=== PATIENT | male | born 1985 | race Caucasian/White ===

== ENCOUNTER 2024-07-24 09:15 | Inpatient (IN) ==
--- NOTE | 2024-07-24 09:29 | Emergency Department Note ---
Impression & Plan Hydronephrosis with obstructing calculus, Bilateral ureteral obstruction ED Provider Note Name: RASHAAD LOCKETT Age: 39 Sex: Male Arrives Via: Walk-In Informant: Patient ED Provider: Sunday Carmona MD Chief Complaint: Flank pain Impression: As per impressions above Medical Decision Making: Pleasant 39-year-old gentleman without significant past medical history who is on Ozempic arrives for evaluation of bilateral flank pain primarily on the right side today. Quite uncomfortable though initially tried Toradol with only minimal improvement. Eventually requiring multiple rounds of IV narcotics for intractable pain. CT imaging of the abdomen pelvis without contrast does reveal obstructing bilateral UVJ stones. Urinalysis is not consistent with infection and laboratory testing is reassuring. I did review this with urology and they will plan to take him for stenting given the bilateral obstructing nature and the intractable pain. Triage/Nursing Notes reviewed by Me Differential:Renal colic, UTI, appendicitis, diverticulitis, mesenteric ischemia, aortic pathology, infections, inflammatory bowel disease, PUD, biliary pathology, as well as other pathologies. Vital Signs: reviewed and remarkable for mild bradycardia on arrival Interventions: Toradol IV, Decadron IV, fentanyl IV, Zofran IV, normal saline bolus Labs:ED labs Reviewed by me and remarkable for no significant abnormalities Imaging:CT imaging and pelvis without contrast reveals bilateral ureteral stones moderate hydro bilaterally no evidence significant free fluid, free air or obstruction of bowel. Confirmed by radiologist. Consults: Discussed withLeann Silva of urology working with Dr. Manning and plan will be to bring him to the OR with hospitalist admission. Discussed with Dr. Mejia of [facility] service who will bring in for further management while pending surgical intervention Plan: Disposition:Hospitalization. Condition: Good History of Present Illness: 39-year-old gentleman arrives for evaluation of right flank pain. Patient notes he was at work around 815 when he had sudden onset severe right-sided flank pain. Radiated in the right lower quadrant. Associated with urinary burning and frequency. Pain lasted about an hour before resolving. Was associated with nausea at the time but no vomiting. Has not had any fevers, chills, other back pain, diarrhea, leg swelling, other concerning signs or symptoms. No medications prior to arrival. Patient does note that about a month ago he had a similar episode that lasted for about a day that was in his left side but not quite as severe. Patient has no history of renal colic or kidney stones that have been diagnosed. He has been on Ozempic for about a year. He also takes some supplements but denies any creatine use. Denies any drug or alcohol use either. No falls, trauma, injuries. Does note that he is bad and keeping well-hydrated though cannot recall any specific significant dehydration events recently. Works in [employer] denies any injury or clear cause during that either. Past Medical History: Prediabetic Home Medications: Ozempic, vitamin C, OTC vitamins Allergies: No known drug allergies Vitals:Blood Pressure: 132/89, Pulse 56, RR 18, T 36.5C, O2 98% on RA Physical Exam: GENERAL: Patient is mildly anxious/uncomfortable appearing and in minimal distress. RESPIRATORY: No dyspnea. Clear to auscultation and equal bilaterally. CARDIOVASCULAR: Regular rate and rhythm.No murmur appreciated. GASTROINTESTINAL: Abdomen soft, non-tender, no peritonitis. BACK: No midline tenderness, no CVA tenderness EXTREMITIES: Normal motion all extremities, no cyanosis, no edema. NEUROLOGIC: Alert and oriented. No focal neurologic deficits appreciated SKIN: No rash, no jaundice, no diaphoresis. PSYCH: Appropriate GCS: 15 ED Course: Times/Reassessments: Waxing and waning pain initially uncomfortable but then severely uncomfortable requiring multiple rounds of IV narcotics Sunday Carmona MD Past Med/Surg History Problem List (Updated 07/25/24 @ 11:43 by Sunday Carmona MD) Bilateral ureteral obstruction (Acute) Flank pain Hydronephrosis with obstructing calculus (Acute) Medical History Morbid obesity Pre-diabetes Surgical History History of dental surgery Family History Mother Diabetes Hypertension Kidney stone Sister Hypertension Kidney stone Brother Mast cell disorder Social History (Updated 07/24/24 @ 13:06 by Meri Sandoval PA-C) Smoking Status: Never smoker Tobacco Type: Smokeless Tobacco (Dip or Chew) Second Hand Exposure: No; Do You Dip or Chew Tobacco: Yes (every day); Hx Alcohol Use: Yes Alcohol type: beer Hx Substance Use: No Preferred Language: Luxembourgish Communication Ability: Effective Quality Rn Required: No Beliefs That Will Affect Care: None Current Living Situation: Spouse and Family Feels Safe at Home: Yes Assistive Devices: None Allergies Allergies Allergy/AdvReac Type Severity Reaction Status Date / Time No Known Allergies Allergy Mild Unverified 07/24/24 11:59 Home Meds Home Medications Medication Instructions Recorded Confirmed ascorbic acid (vitamin C) 500 mg 500 mg PO DAILY 07/24/24 07/24/24 tablet (Vitamin C) inulin-sorbitol 2 gram chewable 1 tab PO DAILY 07/24/24 07/24/24 tablet phentermine 37.5 mg tablet 37.5 mg PO QAM 07/24/24 07/24/24 semaglutide (weight loss) 2.4 2.4 mg subcut WK 07/24/24 07/24/24 mg/0.75 mL subcutaneous pen injector (Wegovy) Results & Data (ED) Vital Signs Vital Signs - 24 hr 07/24/24 09:18 Temperature 36.5 C Temperature Source Temporal Artery Scan Pulse Rate 56 L Respiratory Rate 18 Respiratory Effort / Characteristics Non-Labored Respiratory Depth Normal Respiratory Pattern Regular Blood Pressure 132/89 Blood Pressure Mean 103 Pulse Oximetry 98 Oxygen Delivery Method Room Air Sepsis Recent Fever Within 48 Hours No Sepsis New/Unexplained Change in Mental Status N/A Sepsis Action Taken by Nursing No Action Required Laboratory Data 07/25/24 05:35 07/25/24 05:35 Lab Results 07/24/24 07/24/24 Range/Units 09:32 11:23 WBC 4.59 L (4.8-10.8) K/ul RBC 5.36 (4.70-6.10) M/uL Hgb 15.9 (14.0-18.0) g/dl Hct 46.6 (42.0-52.0) % MCV 86.9 (80.0-100.0) fL MCH 29.7 (25.0-34.0) pg MCHC 34.1 (32.0-36.0) g/dL RDW Std Deviation 39.5 (36.4-46.3) fL RDW Coeff of Brenda 12.5 (11.5-14.5) % Plt Count 177 (130-400) K/uL MPV 10.3 (9.4-12.4) fL Immature Gran % (Auto) 0.0 % Neut % (Auto) 68.8 % Lymph % (Auto) 21.8 % [place] % (Auto) 8.1 % Eos % (Auto) 1.1 % Baso % (Auto) 0.2 % Neut # (Auto) 3.16 (1.40-6.50) K/uL Lymph # (Auto) 1.00 L (1.20-3.40) K/uL [place] # (Auto) 0.37 (0.11-0.59) K/uL Eos # (Auto) 0.05 (0.00-0.50) K/uL Baso # (Auto) 0.01 (0.00-0.20) K/uL Immature Gran # (Auto) 0.00 L (0.01-0.20) K/uL Sodium 140 (136-145) mmol/L Potassium 4.1 (3.5-5.1) mmol/L Chloride 106 (98-107) mmol/L Carbon Dioxide 28 (21-32) mmol/L Anion Gap 6 (3-11) BUN 14 (6-23) mg/dl Creatinine 1.00 (0.6-1.4) mg/dl Est Cr Clr Drug Dosing 132.3 ml/min Est GFR ( Amer) 109.4 ml/min Est GFR (Non-Af Amer) 94.4 ml/min BUN/Creatinine Ratio 14.0 (10-20) Glucose 113 H (70-99(Fasting)) mg/dl Calcium 9.2 (8.6-10.3) mg/dl Total Bilirubin 0.7 (0.2-1.0) mg/dl Direct Bilirubin 0.2 (0-0.2) mg/dl AST 21 (13-39) U/L ALT 23 (7-52) U/L Alkaline Phosphatase 56 (34-104) U/L Total Protein 7.9 (6.0-8.3) gm/dl Albumin 4.7 (3.4-5.0) gm/dl Lipase 79 (11-82) U/L Urine Color Yellow Urine Appearance Clear (Clear) Urine pH 5.0 (4.5-7.5) Ur Specific Anderson 1.022 (1.000-1.030) Urine Protein Trace H (Negative) Urine Glucose (UA) Negative (Negative) Urine Ketones Trace H (Negative) Urine Blood 3+ H (Negative) Urine Nitrite Negative (Negative) Urine Bilirubin Negative (Negative) Urine Urobilinogen Negative (Negative) Ur Leukocyte Esterase Trace H (Negative) Urine WBC (Auto) 6-10 H (0-5) /hpf Urine RBC (Auto) >20 H (0-2) /hpf U Hyaline Cast (Auto) 0-2 (0-2) /lpf U Epithel Cells (Auto) 0-2 (0-2) /hpf Urine Bacteria (Auto) None Seen (None Seen) Administered Medications Acetaminophen (Acetaminophen 325 Mg Tab) 650 mg PO Q4H PRN PRN Reason: pain/fever Stop: 08/23/24 18:57 Last Admin: 07/24/24 20:00 Dose: 650 mg Documented By: ABBI Lactated Ringer's (Lr) 1,000 mls @ 125 mls/hr IV .Q8H ROXY Stop: 08/23/24 12:44 Last Admin: 07/25/24 11:08 Dose: 125 mls/hr Documented By: Infusion: 07/25/24 11:07 Dose: Infused Documented By: Admin: 07/25/24 03:01 Dose: 125 mls/hr Documented By: Infusion: 07/25/24 03:01 Dose: Infused Documented By: Admin: 07/24/24 20:01 Dose: 125 mls/hr Documented By: Infusion: 07/24/24 20:01 Dose: Infused Documented By: Admin: 07/24/24 12:58 Dose: 125 mls/hr Documented By: JOAQUIN Ceftriaxone Sodium (Rocephin) 2,000 mg in 50 mls @ 100 mls/hr IV Q24H ROXY Stop: 08/03/24 13:29 Last Infusion: 07/24/24 13:47 Dose: Infused Documented By: Admin: 07/24/24 13:13 Dose: 100 mls/hr Documented By: JOAQUIN Tamsulosin HCl (Tamsulosin Hcl 0.4 Mg Cap) 0.4 mg PO QAM ROXY Stop: 08/23/24 19:14 Last Admin: 07/25/24 08:48 Dose: 0.4 mg Documented By: Admin: 07/24/24 19:48 Dose: 0.4 mg Documented By: CRH Discontinued Medications Diatrizoate Meglumine (Diatrizoate Meglumine 30% 100ml Vial) 35 ml INSTIL ONCE ONE Stop: 07/24/24 17:50 Last Admin: 07/24/24 17:30 Dose: 35 ml Documented By: [id number] Fentanyl Citrate (Fentanyl Citrate Pf 100 Mcg/2 Ml Vial) 100 mcg IV NOW STA Stop: 07/24/24 12:16 Last Admin: 07/24/24 12:24 Dose: 100 mcg Documented By: MONICA Hydromorphone HCl (Hydromorphone Inj 1 Mg/Ml Syringe) 1 mg IV NOW STA Stop: 07/24/24 11:51 Last Admin: 07/24/24 12:07 Dose: 1 mg Documented By: MONICA Sodium Chloride (Nss) 1,000 mls @ 999 mls/hr IV .Q1H1M ONE Stop: 07/24/24 10:26 Last Infusion: 07/24/24 10:55 Dose: Infused Documented By: Admin: 07/24/24 09:45 Dose: 999 mls/hr Documented By: GUI Sodium Chloride (Nss) 1,000 mls @ 999 mls/hr IV .Q1H1M ONE Stop: 07/24/24 11:51 Last Infusion: 07/24/24 12:24 Dose: Infused Documented By: Admin: 07/24/24 10:55 Dose: 999 mls/hr Documented By: JOAQUIN Ketorolac Tromethamine (Ketorolac 30 Mg/Ml Vial) 30 mg IV NOW STA Stop: 07/24/24 09:40 Last Admin: 07/24/24 09:44 Dose: 30 mg Documented By: GUI Ondansetron HCl (Ondansetron Inj 2 Mg/Ml 2 Ml Vial) 4 mg IV NOW STA Stop: 07/24/24 09:40 Last Admin: 07/24/24 09:44 Dose: 4 mg Documented By: GUI Discharge Plan Visit Data Chief Complaint: Kidney Stone ED Provider: Sunday Carmona Discharge Problem: Hydronephrosis with obstructing calculus, Bilateral ureteral obstruction Patient Disposition: Admitted As Inpatient Discharge Instructions Interventions: ED Discharge Assessment Last Done: 07/24/24 14:47
[2024-07-24] MEDS: ONDANSETRON INJ 2 MG/ML 2 ML VIAL IV STA (09:44)
[2024-07-24] MEDS: KETOROLAC 30 MG/ML VIAL IV STA (09:44)
[2024-07-24] MEDS: SODIUM CHLORIDE 0.9% 1,000 ML IV ONE ×2 (09:45→10:55)
[2024-07-24 10:01] LABS: Basophils # (auto) 0.01 K/uL (0.00-0.20); Basophils % (auto) 0.2 %; Eosinophils # (auto) 0.05 K/uL (0.00-0.50); Eosinophils % (auto) 1.1 %; Hematocrit (blood only) 46.6 % (42.0-52.0); Hemoglobin 15.9 g/dl (14.0-18.0); Lymphocytes % (auto) 21.8 %; Mean Corpuscular Hemoglobin 29.7 pg (25.0-34.0); Mean Corpuscular Hgb Conc 34.1 g/dL (32.0-36.0); Mean Corpuscular Volume 86.9 fL (80.0-100.0); Mean Platelet Volume 10.3 fL (9.4-12.4); Monocytes # (auto) 0.37 K/uL (0.11-0.59); Monocytes % (auto) 8.1 %; Neutrophils # (auto) 3.16 K/uL (1.40-6.50); Neutrophils % (auto) 68.8 %; Platelet Count 177 K/uL (130-400); RDW Coefficient of Variation 12.5 % (11.5-14.5); RDW Standard Deviation 39.5 fL (36.4-46.3); Red Blood Count 5.36 M/uL (4.70-6.10); White Blood Count 4.59 K/ul (4.8-10.8)
--- NOTE | 2024-07-24 10:03 | CT Scan Report ---
CT abd pelvis wo con CLINICAL HISTORY: right flank pain TECHNIQUE: Helical axial images of the abdomen and pelvis were obtained. Automated dose lowering tech niques and/or adjustment according to patient size were utilized for this exam. This exam was perfor med without intravenous contrast. CT DOSE: 1605.89 mGy.cm COMPARISON: None available at the time of this dictation. FINDINGS: Lower chest: No acute abnormality. Liver: Unremarkable. No focal lesions are seen. Gallbladder and biliary tree: No calcified gallstones. Normal caliber wall. No intra- or extrahepatic biliary ductal dilation. Pancreas: Unremarkable, no focal lesions. Spleen: Splenule is incidentally noted. Adrenals: Unremarkable. Kidneys and ureters: There is a 6 mm stone in the left UVJ with associated hydroureter and hydronephr osis. There is also a right UVJ stone measuring 3 mm with associated hydroureter. Nonobstructive ston es are seen bilaterally as well. An exophytic left renal cyst measures 12 mm. Bladder: There is a 6 mm stone in the left UVJ with associated hydroureter and hydronephrosis. An exo phytic left renal cyst measures 12 mm. Reproductive organs: Unremarkable. Bowel: The appendix is normal. Lymph nodes Retroperitoneal: Unremarkable. Pelvic: Unremarkable. Mesenteric: Unremarkable. Peritoneum: Normal. Vessels: Unremarkable. Abdominal wall: Unremarkable. Bones: Degenerative changes in the visualized spine. IMPRESSION: Bilateral hydroureteronephrosis is seen with obstructive stones in the UVJ measuring 6 mm on the left and 3 mm on the right. Additional findings as above. ACT 112: Negative or not required by law. Electronically signed by: Sridhar Flores M.D. 07/24/2024 10:01 AM
[2024-07-24 10:19] LABS: Albumin Level 4.7 gm/dl (3.4-5.0); Bilirubin Direct 0.2 mg/dl (0-0.2); Bilirubin,Total 0.7 mg/dl (0.2-1.0); Calcium 9.2 mg/dl (8.6-10.3); Potassium 4.1 mmol/L (3.5-5.1)
[2024-07-24 10:25] LABS: Creatinine Clr Calc Pharmacy 132.3 ml/min; Est GFR (African American) 109.4 ml/min; Est GFR (Non-African American) 94.4 ml/min; Total Protein 7.9 gm/dl (6.0-8.3)
--- OUTSIDE RECORDS SUMMARY | 2024-07-24 11:14 | External Medical Summary | Summary of Care ---
Author Name Unknown Organization [facility] Address [address] [place] [address] Phone [phone] Care Team Providers Care Water Registrar Name Role Phone Chilo Monique MD Primary Care Provider [phone] Encounter Details Date Type Department Care Team (Late st Contact Info) Description 05/05/2024 Orders Only Outcomes Research Department [address], [place] [id number] Esperanza Porter CHRA [facility] Research Other*[id number] Allergies No known active allergiesdocumented as of this encounter (statuses as of 05/05/2024) Medications Medication Sig Dispensed Refills Start Date End Date Status Wegovy 1.7 MG/0.75ML Subcutaneous Solution Auto-injector Inject 1.7 mg under the skin once a week. 10/10/2023 Active documented as of this encounter (statuses as of 05/05/2024) Active Problems Problem Noted Date Diagnosed Date Severe obesity (BMI 35.0-39.9) with comorbidity 01/19/2024 BMI 40.0-44.9, adult 09/22/2022 COVID-19 virus infection 09/22/2022 Prediabetes 07/03/2021 Sleep disorder 06/09/2021 Acute right ankle pain 11/01/2017 Anal fissure 12/12/2002 documented as of this encounter (statuses as of 05/05/2024) Immunizations Name Administration Dates Next Due Seasonal Influenza, PF, 6 M & above, IM , (FluLaval or Fluzone) 10/23/2023,08/02/2022 Seasonal Influenza, Quadrivalent, No Preserve, I M 07/20/2021 TDAP (age 10 and older)(Boostrix) 03/13/2022 documented as of this encounter Social History Tobacco Use Types Packs/Day Years Used Date Smoking Tobacco: Never Smokeless Tobacco: Current Chew Comments:began at age 20, 1 can per 3 days Alcohol Use Standard Drinks/Week Comments Yes 4 (1 standard drink = 0.6 oz pur e alcohol) once a year AUDIT-C Answer Date Recorded Q1: How often do you have a drink containing alc ohol? Monthly or less 06/09/2021 Q2: How many drinks containi ng alcohol do you have on a typical day when you are drinking? 3 or 4 06/09/2021 Q3: How often do you have si x or more drinks on one occasion? Less than monthly 06/09/2021 PHQ-2 Answer Date Recorded PHQ Adult Total Score 0 09/22/2022 Hunger Vital Sign Answer Date Recorded Within the past 12 months, y ou worried that your food would run out before you got the money to buy more. Never true 03/14/20 23 Within the past 12 months, t he food you bought just didn't last and you didn't have money to get more. Never true 03/14/2023 Sex and Gender Information Value Date Recorded Sex Assigned at Male 03/14/2023 10:37 AM EDT Gender Identity Male 03/14/2023 10:37 AM EDT Sexual Orientation Straight 03/14/2023 10 :37 AM EDT Job Start Date Occupation Industry Not on file Not on file Not on file documented as of this encounter Plan of Treatment Upcoming Encounters Date Type Department Care Team (Late st Contact Info) Description 10/24/2024 2:40 PM EST Office Visit [facility] [address] [facility] [place] [address] Chilo Monique MD [address] [facility] [place] [id number] Scheduled Orders Name Type Priority Associated Diagnoses Orde r Schedule MYCODE INITIAL ADULT Lab Routine My[facility] Research Other*[id number] Expected: 05/05/2024 (Approximate), Expires: 05/25/2025 Health Maintenance Due Date Last Done Comments HIV Screening 2000 Hepatitis C Screening 2003 Hepatitis B (1 of 3 - 19+ 3-dose series) 2004 COVID-19 Vaccine (1 - 2022-24 season) 2023 Depression Screening 09/22/2023 09/22/2022, 08/28/20 18 HbA1c 05/03/2024 05/03/2023, 11/0 02/2022, 03/06/2022, Additional history exists DTaP,Tdap,and Td Vaccines (3 - Td or Tdap) 03/13/2032 03/13/2022, 08/28/2018 (Done elsewhere) Influenza Vaccine (FLU shot) Completed 03/2023, 08/02/2022, 07/20/2021, Additional history exists GARDASIL-HPV IMMUNIZATION SERIES Aged Out No longer eligible based on patient's age to complete this topic MENINGOCOCCAL (MENACTRA/MENVEO) Aged Out No longer eligible based on patient's age to complete this topic Pneumococcal Vaccine: Pediatrics (0 to 5 Years) and At-Risk Patients (6 to 64 Years) Aged Out No longer eligible based on patient's age to complete this topic documented as of this encounter Medical Devices Not on filedocumented as of this encounter Visit Diagnoses Diagnosis [facility] Other*[id number] documented in this encounter Care Teams Water Registrar Relationship Specialty Start Date End Date March, Chilo Bess MD [address] [place] [id number] PCP - General Family Medicine 10/23/23 documented as of this encounter
[2024-07-24 12:07] LABS: Appearance Urine Clear (Clear); Bacteria Urine Automated None Seen (None Seen); Bilirubin Urine Negative (Negative); Blood Urine 3+ (Negative); Cast Urine Automated 0-2 /lpf (0-2); Color Urine Yellow; Epithelial Cell Urine Auto 0-2 /hpf (0-2); Glucose Urine UA Negative (Negative); Ketones Urine Trace (Negative); Leukocyte Esterase Urine Trace (Negative); Nitrite Urine Negative (Negative); Protein Urine Trace (Negative); RBC Urine Automated >20 /hpf (0-2); Specific Gravity Urine 1.022 (1.000-1.030); Urobilinogen Urine Negative (Negative)
[2024-07-24] MEDS: HYDROmorphone INJ 1 MG/ML SYRINGE IV STA (12:07)
[2024-07-24] MEDS: fentaNYL citrate PF 100 MCG/2 ML VIAL IV STA (12:24)
--- NOTE | 2024-07-24 12:46 | History & Physical Report ---
Date of Service July 24, 2024 Assessment & Plan (1) Hydronephrosis with obstructing calculus: Plan Bilateral hydroureteronephrosis with obstructive stone in the UVJ, 6mm on L and 3mm on right admit to med/surg --CT a/p: Bilateral hydroureteronephrosis is seen with obstructive stones in the UVJ measuring 6 mm on the left and 3 mm on the right. Additional findings as above. LR @ 125cc/hr Flomax daily NPO for procedure, will give diet post operatively Pain control with IV toradol for moderate pain, IV dilaudid for severe pain and oral OXY IR for mild-moderate pain Empiric IV Rocephin for now, await urine culture Urology to take to OR later today Pre diabetes Morbid Obesity pt is on wegovy last a1c 5. 25 April 2023, will obtain a1c in a.m. DVT ppx: Encourage ambulation post op, chemical prophylaxis not indicated FULL CODE PCP: Dr. Chilo Monique Dispo: admit for urologic procedure later today, suspect he will be able to be discharged in 1-2 days Pt was seen and examined in collaboration with Dr. Mejia, please see addendum A total of 50 was spent coordinating, documenting, and providing care for this patient excluding time spent in the performance of separately billed services. This included personally viewing all current laboratories and imaging studies, medication reconciliation, outpatient chart review, and discussion with specialists. History of Present Illness Chief Complaint: R flank pain x 1 day. Primary Care Provider: Chilo Monique MD This is a 39 year old M who has a significant PMH of pre diabetes and obesity who presents to ED 2/2 R sided flank/low back pain. The pain came on abruptly this morning. It was associated with nausea, sweating but no vomiting. He states he had a kidney stone May 29 as well, but previously has never had stones. He denies f/c/s, chest pain, sob, abd pain or hematuria. He does have some dysuria. He does not take any regular medications except injectable Wegovy. In ED he remained hemodynamically stable. His CBC, CMP was generally unremarkable. He underwent CT a/p and was found to have obstructive stones in the UVJ measuring 6mm on L and 3mm on right with associated bilateral hydroureteronephrosis. He was seen and evaluated by urology who is going to take him to the OR later today. Allergies Allergy/AdvReac Type Severity Reaction Status Date / Time No Known Allergies Allergy Mild Unverified 07/24/24 11:59 Home Medications Medication Instructions Recorded Confirmed Type ascorbic acid (vitamin C) 500 mg 500 mg PO DAILY 07/24/24 07/24/24 History tablet (Vitamin C) inulin-sorbitol 2 gram chewable 1 tab PO DAILY 07/24/24 07/24/24 History tablet phentermine 37.5 mg tablet 37.5 mg PO QAM 07/24/24 07/24/24 History semaglutide (weight loss) 2.4 2.4 mg subcut WK 07/24/24 07/24/24 History mg/0.75 mL subcutaneous pen injector (Wegovy) Past Med/Surg History Problem List (Updated 07/24/24 @ 13:08 by Meri Sandoval PA-C) Hydronephrosis with obstructing calculus Medical History Morbid obesity Pre-diabetes Surgical History History of dental surgery Family History Mother Diabetes Hypertension Kidney stone Sister Hypertension Kidney stone Brother Mast cell disorder Social History (Updated 07/24/24 @ 13:06 by Meri Sandoval PA-C) Smoking Status: Never smoker Hx Alcohol Use: No Hx Substance Use: No Preferred Language: Zimbabwean Feels Safe at Home: Yes Review of Systems Review of Systems: All systems reviewed & are unremarkable except as noted in HPI & below Physical Exam Physical Exam: please refer to Dr. Mejia addendum for physical exam findings Results & Data Results & Data Vital Signs (Past 12 Hours) Vital Signs Temp Pulse Pulse Resp BP BP Pulse Ox 07/24/24 11:15 60 18 128/84 98 07/24/24 09:18 36.5 C 56 L 18 132/89 98 O2 Del Method 07/24/24 11:15 Room Air 07/24/24 09:18 Room Air Laboratory Results I have independently reviewed and interpreted patient's admitting labs including CBC, CMP, lipase Diagnostic Findings Abdomen/Pelvis CT 07/24/24 09:26 CT abd pelvis wo con CLINICAL HISTORY: right flank pain TECHNIQUE: Helical axial images of the abdomen and pelvis were obtained. Automated dose lowering techniques and/or adjustment according to patient size were utilized for this exam. This exam was performed without intravenous contrast. CT DOSE: 1605.89 mGy.cm COMPARISON: None available at the time of this dictation. FINDINGS: Lower chest: No acute abnormality. Liver: Unremarkable. No focal lesions are seen. Gallbladder and biliary tree: No calcified gallstones. Normal caliber wall. No intra- or extrahepatic biliary ductal dilation. Pancreas: Unremarkable, no focal lesions. Spleen: Splenule is incidentally noted. Adrenals: Unremarkable. Kidneys and ureters: There is a 6 mm stone in the left UVJ with associated hydroureter and hydronephrosis. There is also a right UVJ stone measuring 3 mm with associated hydroureter. Nonobstructive stones are seen bilaterally as well. An exophytic left renal cyst measures 12 mm. Bladder: There is a 6 mm stone in the left UVJ with associated hydroureter and hydronephrosis. An exophytic left renal cyst measures 12 mm. Reproductive organs: Unremarkable. Bowel: The appendix is normal. Lymph nodes Retroperitoneal: Unremarkable. Pelvic: Unremarkable. Mesenteric: Unremarkable. Peritoneum: Normal. Vessels: Unremarkable. Abdominal wall: Unremarkable. Bones: Degenerative changes in the visualized spine. IMPRESSION: Bilateral hydroureteronephrosis is seen with obstructive stones in the UVJ measuring 6 mm on the left and 3 mm on the right. Additional findings as above. ACT 112: Negative or not required by law. Electronically signed by: Sridhar Flores M.D. 07/24/2024 10:01 AM Medications Administered Medication List Discontinued Medications Fentanyl Citrate (Fentanyl Citrate Pf 100 Mcg/2 Ml Vial) 100 mcg IV NOW STA Stop: 07/24/24 12:16 Last Admin: 07/24/24 12:24 Dose: 100 mcg Documented By: MONICA Hydromorphone HCl (Hydromorphone Inj 1 Mg/Ml Syringe) 1 mg IV NOW STA Stop: 07/24/24 11:51 Last Admin: 07/24/24 12:07 Dose: 1 mg Documented By: MONICA Sodium Chloride (Nss) 1,000 mls @ 999 mls/hr IV .Q1H1M ONE Stop: 07/24/24 10:26 Last Infusion: 07/24/24 10:55 Dose: Infused Documented By: Admin: 07/24/24 09:45 Dose: 999 mls/hr Documented By: GUI Sodium Chloride (Nss) 1,000 mls @ 999 mls/hr IV .Q1H1M ONE Stop: 07/24/24 11:51 Last Infusion: 07/24/24 12:24 Dose: Infused Documented By: Admin: 07/24/24 10:55 Dose: 999 mls/hr Documented By: JOAQUIN Ketorolac Tromethamine (Ketorolac 30 Mg/Ml Vial) 30 mg IV NOW STA Stop: 07/24/24 09:40 Last Admin: 07/24/24 09:44 Dose: 30 mg Documented By: GUI Ondansetron HCl (Ondansetron Inj 2 Mg/Ml 2 Ml Vial) 4 mg IV NOW STA Stop: 07/24/24 09:40 Last Admin: 07/24/24 09:44 Dose: 4 mg Documented By: GUI Code Status & VTE Plan Code Status FULL CODE VTE Prophylaxis Plan VTE Prophylaxis will be ordered: No Reason for no VTE drug order: Treatment not indicated Supervising Physician Co-Signing Physician Notes Patient is a 39-year-old male with history of obesity, prediabetes, nephrolithiasis and no other significant past medical history presents with right flank pain associated with nausea, dysuria since this morning. Patient reports that he was known to have kidney stones since May 2024. Please review HPI for complete details of presentation. I personally reviewed blood work and imaging studies. CT abdomen suggestive of bilateral hydroureteronephrosis with obstructive stones in the UV junction measuring 6 mm on the left and 3 mm on the right. Physical Exam: Vitals signs as noted above General Appearance: Obese, no apparent distress Head: normocephalic, Atraumatic Eyes: normal inspection, EOMI Neck: supple, Trachea midline Respiratory/Chest: Normal breath sounds, CTA, No accessory muscle use Cardiovascular: S1, S2, No murmur Abdomen/GI:Soft, right flank tender, Bowel sounds present Extremities/Musculoskeletal:normal inspection, no edema Neurologic/Psych:AAOX3, grossly no focal neurological deficits Skin: normal color, warm Obstructive uropathy Ureteral stone Nephrolithiasis Possible UTI Obesity Prediabetes Agree with IV fluids, pain control, drain urine, Flomax, empirically started on Rocephin, Pyridium as needed Urology on board Obtain urine culture Update HbA1c I personally interviewed and examined at bedside. Patient's care is coordinated with Meri Sandoval PA-C. I have reviewed the advanced practitioner's documentation, and I agree with plan of care. Please refer to the documentation above for details of patient's presentation and for discussion of other issues. I spent a total [id number] coordinating, documenting, and providing care for this patient excluding time spent in the performance of separately billed services.
[2024-07-24] MEDS: LACTATED RINGER'S 1,000 ML IV SCH (12:58)
--- NOTE | 2024-07-24 13:09 | Anesthesiology Consultation ---
Date of Service July 24, 2024 Assessment & Plan Chart Review Chart Review: Acceptable Risk for Surgery and Patient NOT seen in Pre Admission Testing Consults Requested none Additional Notes last ozempic dose 07/19/24 History Surgery Operation Date: 07/24/24 09:20 Proposed Procedures p Cystoscopy, Bilateral Retrograde Pyelogram, Bilateral Stent Placement - Jagdeep Manning DO Height/Weight Height: 6 ft Weight: 119.4 kg Allergies Allergy/AdvReac Type Severity Reaction Status Date / Time No Known Allergies Allergy Mild Unverified 07/24/24 11:59 Medications Home Medications Medication Instructions Recorded Confirmed Last Taken ascorbic acid (vitamin C) 500 mg 500 mg PO DAILY 07/24/24 07/24/24 Unknown tablet (Vitamin C) inulin-sorbitol 2 gram chewable 1 tab PO DAILY 07/24/24 07/24/24 Unknown tablet phentermine 37.5 mg tablet 37.5 mg PO QAM 07/24/24 07/24/24 Unknown semaglutide (weight loss) 2.4 2.4 mg subcut WK 07/24/24 07/24/24 07/19/24 mg/0.75 mL subcutaneous pen injector (Wegovy) Active Medications Generic Name Dose Route Start Last Admin Trade Name Freq PRN Reason Stop Dose Admin Lactated Ringer's 1,000 mls @ 125 mls/hr 07/24/24 12:45 07/24/24 12:58 Lr IV 08/23/24 12:44 125 mls/hr .Q8H ROXY Administration Past Medical History Medical History Morbid obesity Pre-diabetes Past Family History Family History Mother Diabetes Hypertension Kidney stone Sister Hypertension Kidney stone Brother Mast cell disorder Past Surgical History Surgical History History of dental surgery Social History Smoking Status: Never smoker Hx Alcohol Use: No Hx Substance Use: No Physical Exam Vital Signs Last Vital Signs Temp 97.7 F 07/24/24 09:18 Pulse 60 07/24/24 11:15 Resp 18 07/24/24 11:15 BP 128/84 07/24/24 11:15 Pulse Ox 98 07/24/24 11:15 O2 Del Method Room Air 07/24/24 11:15 Testing Laboratory Results 07/24/24 09:32 07/24/24 09:32 Urine Color Yellow 07/24/24 11:23 Urine Appearance Clear (Clear) 07/24/24 11:23 Urine pH 5.0 (4.5-7.5) 07/24/24 11:23 Ur Specific [place] 1.022 (1.000-1.030) 07/24/24 11:23 Urine Protein Trace (Negative) H 07/24/24 11:23 Urine Glucose (UA) Negative (Negative) 07/24/24 11:23 Urine Ketones Trace (Negative) H 07/24/24 11:23 Urine Nitrite Negative (Negative) 07/24/24 11:23 Ur Leukocyte Esterase Trace (Negative) H 07/24/24 11:23 Urine WBC (Auto) 6-10 /hpf (0-5) H 07/24/24 11:23 Urine RBC (Auto) >20 /hpf (0-2) H 07/24/24 11:23 U Hyaline Cast (Auto) 0-2 /lpf (0-2) 07/24/24 11:23 U Epithel Cells (Auto) 0-2 /hpf (0-2) 07/24/24 11:23 Urine Bacteria (Auto) None Seen (None Seen) 07/24/24 11:23
[2024-07-24] MEDS: cefTRIAXone SODIUM 2,000 MG/50 ML BAG IV SCH (13:13)
--- NOTE | 2024-07-24 13:20 | Urology Consultation ---
Date of Consultation July 24, 2024 Assessment & Plan (1) Hydronephrosis with obstructing calculus: (2) Flank pain: (3) Bilateral ureteral obstruction: Plan 39 yo/M who presented with severe right sided flank/back pain and is admitted with bilateral obstructing ureteral stones - Afebrile with stable vitals at present. - Labs reviewed - WBC 4.59, Creatinine 1.00 - He is making urine and voiding without issue. - Urine culture pending. - We reviewed his CT findings of bilateral obstructing ureteral stones. Discussed recommendation for cystoscopy and bilateral ureteral stent placement. Ureteral stents were discussed as well as postoperative issues and pain manageme nt. He is aware additional procedures will be needed for stone treatment. Risks and benefits were discussed. All questions were answered. - Given his bilateral obstructing ureteral stones, will proceed to OR today for cystoscopy, bilateral retrograde pyelogram, bilateral ureteral stent placement. - Risks and benefits to be reviewed with patient by Dr. Manning. - Keep NPO. - Continue supportive care and pain management as needed. - He is covered with scheduled IV Rocephin. - Urology to follow. Attending note: Patient independently assessed, examined, interviewed, and evaluated. Patient has bilateral obstructing stones. Was producing a small amount of urine. Major concern if patient develops significant in area with bilateral obstruction. Would be deemed a medical emergency in that situation. Patient had not eaten this morning but did have some water earlier in the day. Discussed concern about significant bilateral obstruction. Imaging was reviewed interpreted by myself. Does have bilateral obstructing stones. Agree with note as above. Patient's vitals and labs were all reviewed. Pertinent values in the HPI and plan section. White cells 4.59. Creatinine 1.00. Hemoglobin 15.9. Imaging was reviewed interpreted by myself. Imaging is showing bilateral obstructing stones. Agree with read. Vitals were reviewed. Patient having blood pressure 128/84. Pulse 60 respirations 20 temp 36.5. No episodes of fever. Oxygen saturation 97% on room air. Discussed findings extensively with patient and family. Reviewed with nurse practitioner as well as consulting physicians/team. Patient's complicated medical and surgical history was reviewed and summarized above. Patient's surgical, medical, social, and family history were all reviewed with pertinent values as above. Discussed patient's current diagnosis as well as concerns and issues. Reviewed different options moving forward. Discussed potential risks and benefits as well as possible options and concerns. Reviewed potential surgical options and interventions. Discussed potential issues and concerns related to intervention. Risk and benefits were discussed extensively with patient and any available family. Discussed potential risks related to anesthesia. Discussed risks of bleeding infection and injury. Discussed concerns related to obstructing stones. Discussed major concern for complete obstruction. Reviewed possible renal injury and considerable issues. Multiple questions were answered. Extensively reviewed options moving forward. Discussed patient's options for intervention. Discussed possible bilateral stent placement. Discussed possible diuresis after correction of obstruction. Discussed ongoing pain and discomfort. Discussed possible intervention. Discussed need for extraction or destruction of stone. Discussed options moving forward. Patient's complicated medical and surgical history is reviewed and surmise above all imaging was reviewed interpreted by myself all labs and vitals were reviewed and summarized as above. Please see HPI or plan section for full report. Patient is going to remain n.p.o. until intervention. If acutely worsens would need to be placed urgently especially if patient develops an area. Risks and benefits discussed at length for procedure. These include bleeding, infection, injury to surrounding tissues or organs, and risks associated with anesthesia. Patient states understanding and agrees to proceed. Will sign consent and schedule. Plan for cystoscopy with possible bilateral stent placement History of Present Illness History of Present Illness 39 year old male with a PMHx significant for pre diabetes and obesity who presented to the ED today due to an abrupt onset of severe right sided pain. In the ED he was afebrile and hemodynamically stable. Labs showing no leukocytosis and normal renal function. Urinalysis with 3+ blood, trace LE, 610 WBC,> 20 RBC, negative bacteria, negative nitrite. CT abdomen pelvis was obtained and notable for bilateral hydroureteronephrosis with obstructive stones in the UVJ measuring 6 mm on the left and 3 mm on the right. ED course: IV fluids, Toradol, Dilaudid, fentanyl, Zofran. He is admitted to medicine service. Patient was seen at bedside in the ED. No acute distress. Appears uncomfortable. Reports persistent right-sided pain. Denies fever or chills. Some nausea, no vomiting. Had water earlier this morning but otherwise nothing to eat or drink since last night. He is still making urine and voiding. Denies hematuria or dysuria. Patient reports he had a similar episode of pain in May that was on his left side. He denies prior known history of kidney stones. Allergies Allergy/AdvReac Type Severity Reaction Status Date / Time No Known Allergies Allergy Mild Unverified 07/24/24 11:59 Home Medications Medication Instructions Recorded Confirmed Type ascorbic acid (vitamin C) 500 mg 500 mg PO DAILY 07/24/24 07/24/24 History tablet (Vitamin C) inulin-sorbitol 2 gram chewable 1 tab PO DAILY 07/24/24 07/24/24 History tablet phentermine 37.5 mg tablet 37.5 mg PO QAM 07/24/24 07/24/24 History semaglutide (weight loss) 2.4 2.4 mg subcut WK 07/24/24 07/24/24 History mg/0.75 mL subcutaneous pen injector (Cindyvnataliya) Patient History Medical History Morbid obesity Pre-diabetes Surgical History History of dental surgery Family History Mother Diabetes Hypertension Kidney stone Sister Hypertension Kidney stone Brother Mast cell disorder Social History (Updated 07/24/24 @ 13:06 by Meri Sandoval PA-C) Smoking Status: Never smoker Hx Alcohol Use: No Hx Substance Use: No Preferred Language: Uzbek Feels Safe at Home: Yes Review of Systems 2 Review of Systems: All systems reviewed & are unremarkable except as noted in HPI & below Physical Exam Constitutional: no acute distress and + uncomfortable Respiratory: no respiratory distress and no labored breathing Musculoskeletal: Head/Neck/Chest: normocephalic Neurologic: moves all extremities and awake Psychiatric: A+Ox3, euthymic affect Results & Data Vital Signs (Past 12 Hours) Vital Signs Temp Pulse Pulse Resp BP BP Pulse Ox 07/24/24 11:15 60 18 128/84 98 07/24/24 09:18 36.5 C 56 L 18 132/89 98 O2 Del Method 07/24/24 11:15 Room Air 07/24/24 09:18 Room Air PG Care Time/CCT Total # of Minutes Spent Total Time Spent with Patient: Total time spent is greater than 50% in coordination of care (as documented) at patient's floor/unit and/or counseling patient: Coding Level of Care Code 77152 IN/OBS CONSULT LVL 4,60M Diagnoses Hydronephrosis with obstructing calculus N13.2 Flank pain R10.9 Bilateral ureteral obstruction N13.5
[2024-07-24] MEDS ORDERED: LIDOCAINE 2% 2 ML VIAL/AMP(20MG/ML) INFIL ONE (16:51)
[2024-07-24] MEDS ORDERED: PROPOFOL IV EMULSION 10 MG/ML 20 ML VIAL IV ONE (16:51)
[2024-07-24] MEDS ORDERED: ONDANSETRON INJ 2 MG/ML 2 ML VIAL ONE (16:52)
[2024-07-24] MEDS ORDERED: MIDAZOLAM HCL 1 MG/ML 2ML VIAL ONE (16:52)
[2024-07-24] MEDS ORDERED: DEXAMETHASONE SOD INJ 4 MG/ML VIAL ONE ×2 (16:52→17:29)
[2024-07-24] MEDS ORDERED: fentaNYL citrate PF 100 MCG/2 ML VIAL ONE (16:52)
[2024-07-24] MEDS ORDERED: ROCURONIUM BROMIDE 10 MG/ML 5 ML VIAL IV ONE (16:55)
[2024-07-24] MEDS ORDERED: SUCCINYLCHOLINE CHLORIDE 20 MG/ML 10 ML VIAL IV ONE (16:55)
[2024-07-24] MEDS ORDERED: ONDANSETRON INJ 2 MG/ML 2 ML VIAL IV PRN ×2 (17:02→18:58)
[2024-07-24] MEDS ORDERED: ePHEDrine sulfate 50 MG/ML AMP IV PRN (17:02)
[2024-07-24] MEDS ORDERED: fentaNYL citrate PF 100 MCG/2 ML VIAL IV PRN (17:02)
[2024-07-24] MEDS ORDERED: ATROPINE SULFATE 0.1 MG/ML 10ML SYR IV PRN (17:02)
[2024-07-24] MEDS ORDERED: GLYCOPYRROLATE 0.2 MG/ML VIAL ONE (17:29)
[2024-07-24] MEDS: DIATRIZOATE MEGLUMINE 30% 100ML VIAL INSTIL ONE (17:30)
--- NOTE | 2024-07-24 17:50 | Operative Report ---
PG Post Operative Report Pre & Post Diagnosis Operation Date: 07/24/24 09:20 Pre-Op Diagnosis: Back pain, Bilateral Obstructing Stones Post-Op Diagnosis: Same I identified the patient and participated in the time-out.: Yes Procedure Operation Date: 07/24/24 09:20 Actual Procedures Cystoscopy with Bilateral Retrograde Pyelogram and Bilateral Stent Placement Right Ureteroscopy, Stone Extraction, and ureteral dilation. - Jagdeep Manning, Surgeon Jagdeep Manning, II, DO Supervisor Rose Grading None Estimated Blood Loss 1 Findings Consistent with Post-Op Diagnosis Right Ureteral Stone obstructing the UVJ. Stone was dislodged and with ureteroscopy the right obstructing stone was removed with a basket. Left Distal Ureter Stone with significant obstruction. Stent placed. Specimens Stone Right Ureter Drains 4.8 Fr Multilength Bilateral Anesthesia Type General Complications none Disposition Disposition: Recovery Room Indications Patient with bothersome stones. Found to have bilateral stones in the ureter. Risks and benefits discussed at length. Description of Procedure Patient was consented and brought back to the operating room. Patient was placed under anesthesia in the supine position and moved to the dorsal lithotomy position. Patient was prepped and draped in the regular sterile fashion. A time out was completed. A 30degree Cystoscope was placed into the bladder and the entire bladder was examined. The UO's were identified. The right ureter was found to be obstructed at the UO due to a stone in the very distal end at the junction with the bladder. The left ureter was found to have also considerable obstruction however the stone was in more of the distal ureter and was not in close proximity to the UO. The UO was cannulized with a catheter and a retrograde pyelogram was completed. A wire was then placed. The stone at the UO on the right made manipulation and placement of a stent appeared to be very difficult. With its location the wire was also difficult to advance The Rigid ureteroscope was taken into the ureter. The stone was displaced partially back into the dilated portion of the ureter. A area of stricture where the stone had been stuck had to be dilated. The scope was unable to advance. The stone was identified. A basket was selected, the stone was grasped and removed and sent for analysis. The entire area was once again examined. No residual large fragments or areas of concern were noted. The scope was slowly removed with the wire left in place. Contrast was placed through the scope for a pyelogram to assist in stent placement. The entire ureter was examined as the scope was slowly removed. No obstructions or other areas of concern were noted. With the wire in place, a 4.8 Fr Double J stent was placed. It was confirmed with fluoroscopy. Attention was then taken to the left side. The UO was cannulized with a catheter and a retrograde pyelogram was completed. A wire was then placed. There was more of a considerable obstruction on the left side of the stone however was more in the distal segment of the ureter. A wire was able to easily bypassed. A small amount of debris was then found draining from the left kidney. The wire was able to advance to the renal pelvis. It was confirmed with fluoroscopy With the wire in place, a 4.8 Fr Double J stent was placed. It was confirmed with fluoroscopy. With the stents in place, the bladder was emptied. The scope was removed. The patient was cleaned, aroused from anesthesia, and transferred to the pacu in stable condition having tolerated the procedure well with no complications. I was present and participated in all aspects of the procedure. The patient will be monitored in the PACU until transferred. Will plan to monitor overnight. Patient may need further hydration with bilateral obstructing stones. May have significant diuresis. The distal stone on the right side has been extracted. The larger distal stone on the left side still will need to be treated. May need to have further treatment of bilateral renal stones as well. Will likely need to be seen outpatient to set up procedure for stone treatment I attest to the content of the Intraoperative Record and any orders documented therein. Any exceptions are noted below.
--- NOTE | 2024-07-24 18:22 | Anesthesiology Progress Note ---
Date of Service July 24, 2024 Anesthesia Post Procedure Vital Signs Vital Signs: Temp Pulse Pulse Pulse Resp BP BP 07/24/24 18:20 79 16 166/81 H 07/24/24 18:10 74 12 138/70 07/24/24 18:02 36.2 C L 84 18 137/72 07/24/24 16:05 36.5 C 60 18 07/24/24 15:00 20 07/24/24 13:00 60 20 07/24/24 11:15 60 18 07/24/24 09:18 36.5 C 56 L 18 132/89 BP Pulse Ox O2 Del Method O2 Flow Rate 07/24/24 18:20 98 Room Air 07/24/24 18:10 100 Nasal Cannula 3 07/24/24 18:02 97 Nasal Cannula 3 07/24/24 16:05 146/75 H 99 Room Air 07/24/24 15:00 128/82 97 Room Air 07/24/24 13:00 97 Room Air 07/24/24 11:15 128/84 98 Room Air 07/24/24 09:18 98 Room Air Pain Intensity Right Lower Back: Pain Intensity: 4 Transfer of Care Handoff Completed per policy Notes Mental Status: alert / awake / arousable Patient Amnestic to Procedure: Yes Nausea / Vomiting: adequately controlled Pain: adequately controlled Airway Patency, RR, SpO2: stable & adequate BP & HR: stable & adequate Hydration State: stable & adequate Anesthetic Complications: no major complications apparent and Pt Satisfied with anesthetic care
--- NOTE | 2024-07-24 18:43 | Fluoroscopy Report ---
FL retrograde includes kub CLINICAL HISTORY: BILATERALbilateral cystourethrogram COMPARISON STUDY: CT of same day FLUOROSCOPY TIME: 44.5 seconds FLUOROSCOPY IMAGES: 12 EXPOSURE DOSE: 15.69 mGy FINDINGS: Status post placement of bilateral renal stents which appear to be in satisfactory position ing. IMPRESSION: Fluoroscopic assistance as above. ACT 112: Negative or not required by law. Electronically signed by: Jose Miller M.D. 07/24/2024 6:41 PM
[2024-07-24] MEDS ORDERED: PHENAZOPYRIDINE HCL 200 MG TAB PO PRN (18:58)
[2024-07-24] MEDS ORDERED: oxyCODONE HCL IR 5 MG TAB (IMMEDIATE RELEASE) PO PRN (18:58)
[2024-07-24] MEDS ORDERED: HYDROmorphone INJ 0.5 MG/0.5 ML SYR IV PRN (18:58)
[2024-07-24] MEDS ORDERED: POLYETHYLENE (MIRALAX) 17 GM PACK PO PRN (18:58)
[2024-07-24] MEDS ORDERED: KETOROLAC 30 MG/ML VIAL IV PRN (18:58)
[2024-07-24] MEDS: TAMSULOSIN HCL 0.4 MG CAP PO SCH (19:48)
[2024-07-24] MEDS: ACETAMINOPHEN 325 MG TAB PO PRN (20:00)
[2024-07-25 06:03] LABS: Hematocrit (blood only) 39.8 % (42.0-52.0); Hemoglobin 13.6 g/dl (14.0-18.0); Immature Granulocytes # (auto) 0.02 K/uL (0.01-0.20); Immature Granulocytes % (auto) 0.2 %; Lymphocytes # (auto) 0.58 K/uL (1.20-3.40); Lymphocytes % (auto) 6.6 %; Mean Corpuscular Hemoglobin 29.6 pg (25.0-34.0); Mean Corpuscular Hgb Conc 34.2 g/dL (32.0-36.0); Mean Corpuscular Volume 86.5 fL (80.0-100.0); Mean Platelet Volume 10.3 fL (9.4-12.4); Monocytes % (auto) 5.7 %; Neutrophils # (auto) 7.64 K/uL (1.40-6.50); Neutrophils % (auto) 87.5 %; Platelet Count 163 K/uL (130-400); RDW Coefficient of Variation 12.5 % (11.5-14.5); RDW Standard Deviation 39.3 fL (36.4-46.3); White Blood Count 8.74 K/ul (4.8-10.8)
[2024-07-25 06:18] LABS: BUN Creatinine Ratio 14.7 (10-20); Calcium 8.8 mg/dl (8.6-10.3); Est GFR (African American) 106.8 ml/min; Est GFR (Non-African American) 92.2 ml/min; Magnesium 1.6 mg/dl (1.7-2.4); Potassium 4.3 mmol/L (3.5-5.1)
--- NOTE | 2024-07-25 13:43 | Discharge Summary ---
<Statement entered by Samuel Edmond DO - 07/25/24 14:20> I have seen and examined the patient and have discussed the case with the provider above. I have reviewed the advanced practitioner's documentation, and I agree with, and take responsibility for that plan of care. 12 minutes spent on coordination care and examination patient. Patient seen this morning. Sitting in bed. at bedside. Reports having some dysuria most likely due to the ureteral stents. Plan of care as outlined below Discharge Summary Date of Service July 25, 2024 Principal Dx & Hospital Course #1 = Principal Diagnosis (1) Hydronephrosis with obstructing calculus: Plan This is a 39yo M with a PMH of pre diabetes and obesity who presents to ED 2/2 R sided flank/low back pain and was admitted for obstructive bilateral ureteral stones. CT a/p and was found to have obstructive stones in the UVJ measuring 6mm on L and 3mm on right with associated bilateral hydroureteronephrosis. Underwent cystoscopy and bilateral ureteral stent placement by Dr. Manning on 07/24/24. Feeling better post-operatively with resolution of back and flank pain. Still having some burning with urination. No F/C, N/V. Urology ok with discharge home and clinic follow up for stent and stone management. Will discharge on short course of cefdinir per discussion with urology given dysuria, instrumentation and pending urine culture. Continue daily flomax, PRN pyridium. Comfortable and hemodynamically stable at time of discharge home. Notes For Next Care Provider Medication Changes From Visit Cefdinir, Flomax, PRN pyridium Admission HPI Per Admitting Provider This is a 39 year old M who has a significant PMH of pre diabetes and obesity who presents to ED 2/2 R sided flank/low back pain. The pain came on abruptly this morning. It was associated with nausea, sweating but no vomiting. He states he had a kidney stone May 29 as well, but previously has never had stones. He denies f/c/s, chest pain, sob, abd pain or hematuria. He does have some dysuria. He does not take any regular medications except injectable Wegovy. In ED he remained hemodynamically stable. His CBC, CMP was generally unremarkable. He underwent CT a/p and was found to have obstructive stones in the UVJ measuring 6mm on L and 3mm on right with associated bilateral hydroureteronephrosis. He was seen and evaluated by urology who is going to take him to the OR later today. Admission Exam Per Admitting Provider Vitals signs as noted above General Appearance: Obese, no apparent distress Head: normocephalic, Atraumatic Eyes: normal inspection, EOMI Neck: supple, Trachea midline Respiratory/Chest: Normal breath sounds, CTA, No accessory muscle use Cardiovascular: S1, S2, No murmur Abdomen/GI:Soft, right flank tender, Bowel sounds present Extremities/Musculoskeletal:normal inspection, no edema Neurologic/Psych:AAOX3, grossly no focal neurological deficits Skin: normal color, warm Discharge Exam General Appearance: Obese, no apparent distress Head: normocephalic, Atraumatic Eyes: normal inspection Neck: supple Respiratory/Chest: Normal breath sounds, CTA, No accessory muscle use Cardiovascular: S1, S2, No murmur Abdomen/GI: Soft, non-tender, bowel sounds present Extremities/Musculoskeletal:normal inspection, no edema Neurologic/Psych:AAOX3, grossly no focal neurological deficits Skin: normal color, warm Updated Medication List Medication Instructions Recorded Confirmed Type ascorbic acid (vitamin C) 500 mg 500 mg PO DAILY 07/24/24 07/24/24 History tablet (Vitamin C) inulin-sorbitol 2 gram chewable 1 tab PO DAILY 07/24/24 07/24/24 History tablet phentermine 37.5 mg tablet 37.5 mg PO QAM 07/24/24 07/24/24 History semaglutide (weight loss) 2.4 2.4 mg subcut WK 07/24/24 07/24/24 History mg/0.75 mL subcutaneous pen injector (Wegovy) cefdinir 300 mg capsule 300 mg PO BID #6 caps 07/25/24 Rx phenazopyridine 200 mg tablet 200 mg PO TID PRN pain #8 tabs 07/25/24 Rx (Pyridium) tamsulosin 0.4 mg capsule 0.4 mg PO QAM #30 caps 07/25/24 Rx Hospital Stay Data Consultations 07/24/24 12:29 Consult Urology Stat ED Decision to Admit Stat Procedures Performed Operation Date: 07/24/24 09:20 Actual Procedures p Cystoscopy, Bilateral Retrograde Pyelogram, Right Ureterosocopy, Stone Extraction, Bilateral Stent Placement(Not Applicable) - Jagdeep Manning, DO Diagnostic Imagining Performed 07/24/24 FL retrograde includes kub Routine 07/24/24 09:26 CT abd pelvis wo con Stat Pending Results Patient Have Any Pending Studies at Discharge: No Discharge Instructions Given to Patient (Per Discharging Provider) You were admitted for flank pain and bilateral obstructing ureteral stones. S/p cystoscopy and bilateral ureteral stent placement by Dr. Manning. Please follow up with urology clinic as directed. MEDICATION CHANGES: Cefdinir 300mg by mouth twice daily x 3 days forpossible UTI/ instrumentation Continue daily flomax until urology follow up Pyridium up to 3x/day as needed for pain with urination PENDING TEST RESULTS: Urine culture RECOMMENDATIONS FOR FOLLOW-UP: Follow up with PCP and urology as scheduled. Complete antibiotic in its entirety. Continue medication regimen as scheduled aside from changes noted above. OTHER INSTRUCTIONS: Seek medical attention if you have: * temperature above 101 * chest pain or trouble breathing * abdominal pain, nausea, vomiting * diarrhea, dark stools or bloody stools * any unanswered questions or concerns Call 911 if symptoms are severe. Please take good care of yourself. Call if you have any questions or problems. You can reach a [facility] hospitalist on duty at [facility] 24 hours a day by calling [phone]. Total Time Total Time Spent Total Time Spent (In Minutes): 40
--- NOTE | 2024-07-25 14:53 | Urology Progress Note ---
Date of Service July 25, 2024 Assessment & Plan (1) Bilateral ureteral obstruction: (2) Flank pain: (3) Hydronephrosis with obstructing calculus: Plan -POD #1 s/p Cystoscopy with Bilateral Retrograde Pyelogram and Bilateral Stent Placement, Right Ureteroscopy, Stone Extraction, and ureteral dilation. -Feeling well, tolerating the ureteral stents with minimal bother. -Remains afebrile and hemodynamically stable. -Labs today show no leukocytosis, hemoglobin 13.6, creatinine 1.02. -Urine culture preliminary no growth. -Okay for discharge from perspective. -Will arrange outpatient follow-up with our service for stone and stent management. -Recommend d/c with tamsulosin, PRN Pyridium, and short course of antibiotics. -Expected clinical course reviewed, all questions were answered. -Urology will sign off. Please call with any further questions or concerns. Admission and Anticipated Discharge Date Admission Date: July 24, 2024 Subjective Pt seen at bedside this afternoon. Awake, resting bed on arrival. No acute distress. Tolerating the ureteral stents with minimal bother. Denies fever, chills, nausea, vomiting. Voiding without issue. Some hematuria and dysuria as expected with voiding. Review of Systems Constitutional: as per Subjective / HPI Genitourinary: + as per Subjective / HPI Physical Exam Constitutional: no acute distress Respiratory: no respiratory distress and no labored breathing Musculoskeletal: Head/Neck/Chest: normocephalic Neurologic: moves all extremities and awake Psychiatric: A+Ox3, euthymic affect Results & Data Vital Signs (Past 12 Hours) Vital Signs Temp Pulse Resp BP BP Pulse Ox O2 Del Method 07/25/24 11:58 36.6 C 68 16 156/92 H 98 Room Air 07/25/24 08:11 36.7 C 53 L 16 130/72 97 Room Air 07/25/24 03:00 36.7 C 57 L 16 129/75 96 Room Air PG Care Time/CCT Total # of Minutes Spent Total Time Spent with Patient: Total time spent is greater than 50% in coordination of care (as documented) at patient's floor/unit and/or counseling patient: Coding Level of Care Code 11279 SUB INP/OBS CARE 2/35MIN Diagnoses Bilateral ureteral obstruction N13.5 Flank pain R10.9 Hydronephrosis with obstructing calculus N13.2
== END 2024-07-25 14:00 | disposition home or self-care (01) | DRG 661 ==
LOC: ED 09:15 → 3W 12:40 → SUATTDRO 12:40 → 3W 14:47
DX: Z79.85 Long-term (current) use of injectable non-insulin antidiabetic drugs; E66.01 Morbid (severe) obesity due to excess calories; N13.2 Hydronephrosis with renal and ureteral calculous obstruction; Z68.35 Body mass index [BMI] 35.0-35.9, adult; R73.03 Prediabetes